=== PATIENT | male | born 1975 | race African-American/Black ===

== ENCOUNTER 2021-01-12 16:52 | Emergency (ER) | payer OTHER ==
[~2021-01-12] VITALS: Ht 180.3 cm; Wt 102.1 kg
[~2021-01-12 16:52] MED LIST: DOXYCYCLINE 10100 M1 PO; DOXYCYCLINE 10100 MG PO; NORCO 5-325 TA1 EACH PO; TRAMADOL 50 MG50 MG PO
[2021-01-12 16:56] VITALS: BP 152/107
[2021-01-12] MEDS ORDERED: AMLODIPINE-OLM1 EAC2 PO (17:49)
[2021-01-12] MEDS ORDERED: NAPROSYN500 MG PO (17:57)
[2021-01-12] MEDS ORDERED: TYLENOL325 M1 PO (17:57)
--- NOTE | 2021-01-13 07:09 | EKG ---
[address] [address] ELECTROCARDIOGRAM REPORT Name: ZUHAIR FOLEY Room #: DEP Alfred#: [id number] Admission: 01/12/21 Attend Phys: Discharge: 01/12/21 Date of : 73 Report #: [id number] [facility] ED Test Date: 2021-01-12 Test Time: 17:30:21 Pat Name: ZUHAIR FOLEY Department: Room: Gender: Alignment Technician: : 1975 Requested By: Alfonzo Cruz Order Number: [id number] MD: Melvin Sorto Measurements Intervals [place] Rate: 90 P: 51 MD: 136 QRS: 18 QRSD: 91 T: 34 QT: 361 QTc: 442 Interpretive Statements Sinus rhythm Probable left atrial enlargement No previous ECG available for comparison Electronically Signed On 01-13-2021 7:08:49 [employer] BPM ARCHITECT by Melvin Sorto [email or web address] <ELECTRONICALLY SIGNED> By: Melvin Sorto MD, [facility] 01/13/21 0708 1730 1730 Melvin Sorto MD, FACC /EPI
== END 2021-01-12 18:04 | disposition home or self-care (01) ==
LOC: ER 16:52
DX: S23.421A Sprain of chondrosternal joint, initial encounter (principal); I10 Essential (primary) hypertension; Z79.899 Other long term (current) drug therapy; X58.XXXA Exposure to other specified factors, initial encounter; Y93.89 Activity, other specified; Y92.89 Other specified places as the place of occurrence of the external cause; Y99.8 Other external cause status